=== PATIENT | female | born 2000 | race Caucasian/White ===

== ENCOUNTER 2024-08-04 04:47 | Emergency (ER) | payer MEDICAID ==
[~2024-08-04] VITALS: Ht 162.6 cm; Wt 82.0 kg
[2024-08-04 04:48] VITALS: O2SAT 100
[2024-08-04] MEDS: SODIUM CHLORIDE 0.9% 1,000 ML IV ONE (06:46)
[2024-08-04 10:30] VITALS: BP 98/59; PULSE 74; RESP 16; TEMP 36.55848; O2SAT 100
== END 2024-08-04 11:00 | disposition home or self-care (01) ==
LOC: ER 04:47
DX: T40.2X1A Poisoning by other opioids, accidental (unintentional), initial encounter (principal); Y92.9 Unspecified place or not applicable
CPT/HCPCS: 96360; 99285; J7030; Z7610

== ENCOUNTER 2024-10-05 22:37 | Emergency (ER) | payer MEDICAID ==
[~2024-10-05] VITALS: Ht 167.6 cm; Wt 64.0 kg
[2024-10-05 22:38] VITALS: BP 128/82; PULSE 87; RESP 17; TEMP 98.4; O2SAT 99
[2024-10-05] MEDS ORDERED: NALOXONE HCL 0.4MG/ML 1ML VIAL IV ONE (23:15)
[2024-10-06 00:46] LABS: BASOPHILS % 0.3 % (0.0-2.0); LYMPHOCYTES % 36.4 % (20.0-50.0); MEAN CORPUSCULAR HGB CONC 34.2 g/dL (31.0-37.0); MEAN CORPUSCULAR VOLUME 90.5 fL (81.0-99.0); MEAN PLATELET VOLUME 6.4 fl (7.4-10.4); MONOCYTES % 12.1 % (2.0-8.0); NEUTROPHILS % 51.2 % (40.0-76.0); PLATELET 296 x1000/uL (130-400); RED BLOOD CELL COUNT 3.87 mill/uL (4.2-5.4); RED CELL DISTRIBUTION WIDTH 12.8 % (11.6-14.6); WHITE BLOOD COUNT 4.7 x1000/uL (4.5-11.0)
[2024-10-06 00:52] LABS: CARBON DIOXIDE 26 mEq/L (21-32); CHLORIDE 107 mEq/L (98-107); POTASSIUM 3.5 mEq/L (3.5-5.1); SODIUM 141 mEq/L (136-145)
[2024-10-06 00:58] LABS: CREATININE 0.7 mg/dL (0.6-1.0); GLUCOSE 83 mg/dL (70-105); UREA NITROGEN BLOOD 16 mg/dL (9-23)
[2024-10-06 01:05] LABS: ETHANOL BLOOD < 10 mg/dL (<10)
[2024-10-06] MEDS: NALOXONE HCL 0.4MG/ML 1ML VIAL IV NR (01:45)
[2024-10-06] MEDS ORDERED: NALO4SPR BOTHNSTRLS (04:28)
== END 2024-10-06 05:52 | disposition home or self-care (01) ==
LOC: ER 22:37
DX: T40.601A Poisoning by unspecified narcotics, accidental (unintentional), initial encounter (principal); F19.90 Other psychoactive substance use, unspecified, uncomplicated; Z88.0 Allergy status to penicillin; Y92.89 Other specified places as the place of occurrence of the external cause
CPT/HCPCS: 99283; 80048; 85025; 36415; 96374; J2310